=== PATIENT | female | born 1935 | race Caucasian/White ===

== ENCOUNTER 2018-07-05 13:20 | Inpatient (IN) | payer BC, OTHER ==
[~2018-07-05] VITALS: Ht 147.3 cm; Wt 60.8 kg
--- NOTE | 2018-07-05 13:41 | ERD ---
ER Documentation Chief Complaint Chief Complaint left lip numbness HPI The patient is a 82-year-old female, presenting to the ER because of sudden onset of left lip numbness around 12 PM while she was talking on the phone, with left hand numbness and dizziness.. She denies similar symptoms previously. These symptoms lasted for a few seconds but the scared her to go to the hospital. She denies headache, neck pain, chest pain, dyspnea, abdominal pain, vomiting, dizzy, diarrhea. She does not smoke nor drink Past medical history: Hypertension, DM Past surgical history: None ROS All systems reviewed and are negative except as per history of present illness. Medications Home Meds Reported Medications Metformin Hcl* (Metformin Hcl* ER) 500 Mg Tab.sr.24h, 500 MG PO DAILY, #30 TAB 07/05/18 Allergies Allergies: Coded Allergies: No Known Allergy (Unverified , 07/05/18) Physical Exam Vitals Vital Signs Date Temp Pulse Resp B/P (MAP) Pulse Ox O2 O2 Flow FiO2 Time Delivery Rate 07/05/18 77 16 157/91 97 Room Air 16.0 18:30 (113) 07/05/18 80 18 176/72 17:16 (106) 07/05/18 140/80 13:42 (100) 07/05/18 97.8 87 19 164/145 99 13:39 (151) Physical Exam Const: No acute distress. Head: Atraumatic. Eyes: Normal Conjunctiva. ENT: Normal External Ears, Nose and Mouth. Neck: Full range of motion. No meningismus. Resp: Clear to auscultation bilaterally. Cardio: Regular rate and rhythm. Abd: Soft, non distended, normal bowel sounds, non tender. Skin: No petechiae or rashes. Back: No midline or flank tenderness. Ext: No cyanosis, or edema. Neur: Awake and alert. No focal deficit Psych: Normal Mood and Affect. Result Diagram: 07/05/18 1420 07/05/18 1420 Results 24 hrs Laboratory Tests Test 07/05/18 14:20 07/05/18 18:30 White Blood Count 4.9 10^3/ul Red Blood Count 3.89 10^6/ul Hemoglobin 11.6 g/dl Hematocrit 35.4 % Mean Corpuscular Volume 91.0 fl Mean Corpuscular Hemoglobin 29.8 pg Mean Corpuscular Hemoglobin Concent 32.8 g/dl Red Cell Distribution Width 12.7 % Platelet Count 218 10^3/UL Mean Platelet Volume 9.6 fl Immature Granulocytes % 0.400 % Neutrophils % 62.0 % Lymphocytes % 20.2 % Monocytes % 11.9 % Eosinophils % 4.7 % Basophils % 0.8 % Nucleated Red Blood Cells % 0.0 /100WBC Immature Granulocytes # 0.020 10^3/ul Neutrophils # 3.0 10^3/ul Lymphocytes # 1.0 10^3/ul Monocytes # 0.6 10^3/ul Eosinophils # 0.2 10^3/ul Basophils # 0.0 10^3/ul Nucleated Red Blood Cells # 0.0 10^3/ul Prothrombin Time 12.1 Sec Prothrombin Time Ratio 0.9 INR International Normalized Ratio 0.89 Activated Partial Thromboplast Time 26.9 Sec Sodium Level 144 mmol/L Potassium Level 4.3 mmol/L Chloride Level 105 mmol/L Carbon Dioxide Level 28 mmol/L Anion Gap 11 Blood Urea Nitrogen 21 mg/dl Creatinine 1.04 mg/dl Est Glomerular Filtrat Rate mL/min mL/min Glucose Level 103 mg/dl Calcium Level 9.5 mg/dl Troponin I 0.240 ng/ml 0.215 ng/ml Creatine Kinase 53 IU/L Creatine Kinase Index 1.3 Creatinine Kinase MB (Mass) 0.69 ng/ml Current Medications Medications Dose Sig/Elsie Start Time Status Last (Trade) Ordered Route PRN Stop Time Admin Dose Reason Admin IV Flush 10 ml STK-MED 07/05/18 DC 07/05/18 (NS 10 ml) ONCE .ROUTE 15:49 07/05/18 15:49 15:50 Sodium 100 ml @ ud STK-MED 07/05/18 DC 07/05/18 Chloride ONCE .ROUTE 15:49 07/05/18 15:49 15:50 Iodixanol 100 ml STK-MED 07/05/18 DC 07/05/18 (Visipaque ONCE .ROUTE 15:49 07/05/18 15:49 Locm) 15:50 Aspirin 325 mg ONCE ONCE 07/05/18 DC 07/05/18 (Aspirin) PO 18:00 07/05/18 18:21 18:10 1 inch ONCE ONCE 07/05/18 DC 07/05/18 Nitroglycerin TD 18:00 07/05/18 18:21 18:10 (Nitroglyceri n 2% Oint) IV Flush 3 ml PER 07/05/18 (NS 3 ml) PROTOCOL IV 18:30 Enoxaparin 30 mg DAILY SC 07/06/18 Sodium 09:00 (Lovenox) Aspirin 81 mg DAILY PO 07/06/18 (Aspirin) 09:00 40 mg HS PO 07/05/18 Atorvastatin 21:00 Calcium (Lipitor) Procedures/[place] [address] Radiology Main Line: [phone] DIAGNOSTIC IMAGING REPORT Patient: SAURAV PIZANO : 1935 Age: 82 Sex: F MR #: [id number] DOS: 07/05/18 1541 Ordering MD: DHRUV DAVIES MD Location: E/R Room/Bed: PROCEDURE: CTA Chest and pulmonary angiogram. CLINICAL INDICATION: Chest pain and shortness of breath. TECHNIQUE: CT scan of the chest and CT pulmonary angiogram was performed on a multidetector high-resolution CT scanner. High-resolution thin slice coronal and sagittal imaging was obtained from the axial source images. 3-D volumetric rendered post processing was performed as well. The patient was examined following the uncomplicated intravenous administration of 100 cc of Omnipaque- 350. The images were reviewed on a PACS workstation. The total exam CTDI equals 25.35, and 9.38 and the total exam DLP equals 313.7 mGy-cm. DICOM images are available. DICOM images are available. One or more of the following dose reduction techniques were utilized: 1.) Automated exposure control 2.) Adjustment of the mA +/- kV according to patient's size 3.) Use of iterative reconstruction technique. COMPARISON: No prior studies are available for comparison. FINDINGS: CT chest: There is a calcified granuloma in the right middle lobe. No focal opacification, effusion, pneumothorax, edema, or nodules are seen. The central tracheobronchial tree is clear. The mediastinum is unremarkable without evidence for mass or lymphadenopathy. Calcified right intrapulmonary, right hilar , paratracheal and subcarinal lymph nodes are present. The vascular structures of the mediastinum are normal in course and caliber. The heart size is normal without pericardial thickening or effusion. The axillary, subpectoral, and supraclavicular regions are unremarkable. Imaging obtained through the upper abdomen is remarkable for calcified granuloma in the spleen. The adrenal glands are symmetrically normal. The surrounding ch est wall is unremarkable. The osseous structures are remarkable for degenerative spondylosis of the spine. CT pulmonary angiogram: No thrombus, clot, filling defect, or pulmonary web is identified. The pulmonary arteries are normal in caliber and morphology. No filling defect is present to suggest pulmonary embolism. There is no evidence for pulmonary arterial hypertension. IMPRESSION: 1. No evidence for pulmonary embolism. 2. No mass, lymphadenopathy or acute infiltrates. 3. Sequela of prior granulomatous disease. 4. Aortic and coronary artery vascular calcifications. RPTAT: BB .Shashank Sheppard MD, Date Time Electronically viewed and signed by .Shashank Sheppard MD, MD on 07/05/2018 17:30 .O/ CC: DHRUV DAVIES MD [phone] [place] [address] Radiology Main Line: [phone] DIAGNOSTIC IMAGING REPORT Patient: SAURAV PIZANO : 1935 Age: 82 Sex: F MR #: [id number] DOS: 07/05/18 1403 Ordering MD: DHRUV DAVIES MD Location: E/R Room/Bed: PROCEDURE: CT Brain without contrast. CLINICAL INDICATION: Syncope. TECHNIQUE: A CT of the brain without contrast was performed utilizing axial sections from the skull base through the vertex. One or more the following does reduction techniques were utilized: Automated exposure control, adjustment of the mA/ or kV according to patient's size, or use of iterative reconstruction technique. Total exam CTDIvol is 39.54 MGy and DLP is 634.23 mGy-cm. DICOM images are available. COMPARISON: None available. FINDINGS: The ventricles and sulci are mildly prominent indicative of volume loss. There is no intracranial hemorrhage, mass effect or midline shift. No abnormal intra- axial or extra-axial fluid collections are seen. The wing/white matter differentiation is preserved. 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 There are mild to moderate foci of hypoattenuation in the white matter, which are nonspecific in etiology but likely reflect chronic small vessel ischemic changes. There are mild intracranial vascular calcifications consistent with atherosclerosis. The visualized paranasal sinuses demonstrate mild scattered mucosal thickening. The mastoid air cells are essentially clear. IMPRESSION: 1. No acute intracranial hemorrhage, transcortical infarction or mass effect. 2. Mild intracranial atherosclerosis and mild to moderate chronic small vessel ischemic changes. 3. 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 4. Mild generalized cerebral volume loss. RPTAT: HH .Yadira Ramirez MD, MD Date Time Electronically viewed and signed by .Yadira Ramirez MD, on 07/05/2018 15:00 .N/ CC: DHRUV DAVIES MD [id number] [place] [address] Radiology Main Line: [phone] DIAGNOSTIC IMAGING REPORT Patient: SAURAV PIZANO : 1935 Age: 82 Sex: F MR #: [id number] DOS: 07/05/18 1403 Ordering MD: DHRUV DAVIES MD Location: E/R Room/Bed: PROCEDURE: XR Chest. CLINICAL INDICATION: Altered mental status TECHNIQUE: Single frontal view of the chest was obtained COMPARISON: None FINDINGS: Atherosclerotic changes are seen in the aortic arch. The cardiac silhouette is unremarkable. The lungs are clear. There is no pleural effusion or pneumothorax. The bones and soft tissue show no acute change. IMPRESSION: No acute abnormalities are identified on this single view. RPTAT:AAJJ Physician Derek Date Time Electronically viewed and signed by Grabiel Pierre Physician on 07/05/2018 14:36 MC/ CC: DHRUV DAVIES MD [id number] EKG: At 2:24 PM read by emergency physician Rate/Rhythm: Normal Sinus Rhythm 80 beats/min QRS, ST, T-waves: No ST elevation, no T inversion Impression: normal EKG EKG: At 3:48 PM read by emergency physician Rate/Rhythm: Normal Sinus Rhythm 81 beats/min QRS, ST, T-waves: No ST elevation, no T inversion Impression: normal EKG MEDICAL MAKING DECISION: The patient is a 82-year-old female, presenting with acute TIA, acute troponin elevation of unclear etiology. He was treated with aspirin 325 mg p.o. and 1 inch of nitroglycerin for her TIA and for her elevated blood pressure and suspected non-STEMI The differential diagnoses considered include but are not limited to TIA, impending CVA, non-STEMI, ACS, PE, aortic disease Departure Diagnosis: Primary Impression: TIA (transient ischemic attack) Additional Impressions: Elevated troponin Anemia Condition: Stable Comments I discussed the findings with the patient. I discussed the patient with the hospitalist Dr Nunez at 5:40 PM. who was made aware of the lab, the treatment, the patient condition. The patient is admitted to [facility] Disclaimer: Inadvertent spelling and grammatical errors are likely due to EHR/dictation software use and do not reflect on the overall quality of patient care. Also, please note that the electronic time recorded on this note does not necessarily reflect the actual time of the patient encounter. DHRUV DAVIES MD Jul 05, 2018 13:41
[2018-07-05] MEDS ORDERED: METF500T3 PO (14:28)
[2018-07-05] MEDS ORDERED: IODIXANOL LOCM 100 ML BTL ONE (15:49)
[2018-07-05] MEDS ORDERED: SOD CHLORIDE 0.9% 100 ML ONE (15:49)
[2018-07-05] MEDS ORDERED: ASPIRIN 325 MG TAB PO ONE (18:00)
[2018-07-05] MEDS ORDERED: NITROGLYCERIN 2% 1 GM OINT PKT TD ONE (18:00)
--- NOTE | 2018-07-05 18:13 | HP ---
Date/Time of Note Date/Time of Note DATE: 07/05/18 TIME: 18:07 Assessment/Plan VTE Prophylaxis Pharmacological prophylaxis: heparin Lines/Catheters IV Catheter Type (from Nrsg): Saline Lock Assessment/Plan Hospital Course 82 yo female with h/o DMII, hypertension who presents with episode of transient R facial numbness, dysarthria, and hand weakness which have now all resolved Most concerning for TIA - Will complete workup with CT angio of head/neck, MRI, telemetry, TTE - Aspirin, statin - Dr Barrios consulted NSTEMI: - Likely related to TIA as she had no chest symptosm and EKG without acute ischemia - Trend troponin - Aspirin DMII: - Basal/bolus Discharge pending clinical course Result Diagram: 07/05/18 1420 07/05/18 1420 Results 24hrs Laboratory Tests Test 07/05/18 14:20 White Blood Count 4.9 Red Blood Count 3.89 L Hemoglobin 11.6 L Hematocrit 35.4 L Mean Corpuscular Volume 91.0 Mean Corpuscular Hemoglobin 29.8 Mean Corpuscular Hemoglobin Concent 32.8 Red Cell Distribution Width 12.7 Platelet Count 218 Mean Platelet Volume 9.6 Immature Granulocytes % 0.400 Neutrophils % 62.0 Lymphocytes % 20.2 Monocytes % 11.9 H Eosinophils % 4.7 Basophils % 0.8 Nucleated Red Blood Cells % 0.0 Immature Granulocytes # 0.020 Neutrophils # 3.0 Lymphocytes # 1.0 Monocytes # 0.6 Eosinophils # 0.2 Basophils # 0.0 Nucleated Red Blood Cells # 0.0 Prothrombin Time 12.1 Prothrombin Time Ratio 0.9 INR International Normalized Ratio 0.89 Activated Partial Thromboplast Time 26.9 Sodium Level 144 Potassium Level 4.3 Chloride Level 105 Carbon Dioxide Level 28 Anion Gap 11 Blood Urea Nitrogen 21 H Creatinine 1.04 H Est Glomerular Filtrat Rate mL/min Glucose Level 103 Calcium Level 9.5 Troponin I 0.240 *H HPI/ROS Admit Date/Time Admit Date/Time Hx of Present Illness 82 yo female with DMII who presents with transient facial numbness and LUE weakness Patient in [facility] until today. Was working in her kitchen when she felt her R side of face go numb. Then couldn't speak. L handle also weak and numb. Symptoms resolved. Currently feels totally fine. No symptoms at all. Troponin elevated but denies any chest symptoms at all PMH/Family/Social Past Medical History Medical History: diabetes, hypertension Medications Current Medications Aspirin (Aspirin) 325 mg ONCE ONCE PO ; Start 07/05/18 at 18:00; Stop 07/05/18 at 18:01; Status UNV Nitroglycerin (Nitroglycerin 2% Oint) 1 inch ONCE ONCE TD ; Start 07/05/18 at 18:00; Stop 07/05/18 at 18:01; Status UNV Coded Allergies: No Known Allergy (Unverified , 07/05/18) Past Surgical History Past Surgical Hx: no surgical history Family History Significant Family History: no pertinent family hx Social History Alcohol Use: none Smoking Status: Never smoker Drug Use: none Exam/Review of Systems Vital Signs Vitals Vital Signs Date Temp Pulse Resp B/P (MAP) Pulse Ox O2 O2 Flow FiO2 Time Delivery Rate 07/05/18 80 18 176/72 17:16 (106) 07/05/18 97.8 99 13:39 Exam Constitutional: alert, oriented, well developed Psych: no complaints, nl mood/affect Head: normocephalic, atraumatic Eyes: nl conjunctiva, EOMI, nl lids, nl sclera, PERRL ENMT: nl external ears & nose, nl lips & teeth, nl nasal mucosa & septum Neck: supple, non-tender Respiratory: clear to auscultation, normal air movement Cardiovascular: regular rate and rhythm, nl pulses Gastrointestinal: soft, nl liver, spleen, non-tender Musculoskeletal: nl extremities to inspection Extremities: normal pulses Neurological: BRASS SORTER II-XII intact, nl mental status, nl speech, nl strength Skin: nl turgor; No rash or lesions Lymph: nl lymph nodes EVANGELINA QUAN MD Jul 05, 2018 18:13
[2018-07-05] MEDS ORDERED: NACL 0.9% 3 ML SYG IV SCH (18:30)
[2018-07-05] MEDS ORDERED: ATORVASTATIN 40 MG TAB PO SCH (21:00)
[2018-07-05 21:16] VITALS: BP 193/89; PULSE 90; RESP 16
[2018-07-05 21:28] VITALS: PULSE 84
[2018-07-05 21:39] VITALS: Ht 147.3 cm; Wt 60.8 kg
[2018-07-05 22:00] VITALS: BP 139/67
[2018-07-05] MEDS ORDERED: LISI2.5T59 PO (22:28)
[2018-07-05] MEDS ORDERED: GLUCAGON 1 MG INJ IM PRN (23:00)
[2018-07-05] MEDS ORDERED: DEXTROSE 50% 50 ML SYRINGE IV PRN ×2 (23:00)
[2018-07-05] MEDS ORDERED: GLUCOSE GEL 15 GRAM TUBE BUCCAL PRN (23:00)
[2018-07-05] MEDS ORDERED: GLUCOSE GEL 15 GRAM TUBE PO PRN ×2 (23:00)
[2018-07-06] VITALS (7 sets, daily range): BP systolic 142–168; BP diastolic 65–79; PULSE 73–94; RESP 16–17
[2018-07-06] MEDS ORDERED: ACCU-CHEK XX SCH (02:00)
[2018-07-06] MEDS: INSULIN ASPART [NOVOLOG] 3 ML PEN SC SCH ×2 (07:54→11:57)
[2018-07-06] MEDS ORDERED: NITROGLYCERIN 2% 1 GM OINT PKT TD SCH (09:00)
[2018-07-06] MEDS ORDERED: ENOXAPARIN 30 MG/0.3 ML SYG SC SCH (09:00)
[2018-07-06] MEDS ORDERED: ASPIRIN 81 MG TAB PO SCH (09:00)
[2018-07-06] MEDS ORDERED: LISINOPRIL 5 MG TAB PO SCH (09:00)
[2018-07-06] MEDS ORDERED: IODIXANOL LOCM 100 ML BTL ONE (09:10)
[2018-07-06] MEDS ORDERED: SOD CHLORIDE 0.9% 100 ML ONE (09:10)
[2018-07-06] MEDS ORDERED: ASPI-831 PO (11:54)
[2018-07-06] MEDS ORDERED: ATOR40TA68 PO (11:54)
--- NOTE | 2018-07-06 11:55 | PDOCDIS ---
Discharge Instructions DIAGNOSIS Discharge Diagnosis TIA CONDITION [id number] Patient Condition: [id number] Stable FOLLOW UP/APPOINTMENTS Follow-up Plan Take a baby aspirin everyday as well as lipitor It is very important to make sure your blood pressure is well controlled. Please check in with your doctor about this in the coming 1-2 week Return to the hospital [facility] if you have any symptoms concerning for stroke or heart attack EVANGELINA QUAN MD Jul 06, 2018 11:55
--- NOTE | 2018-07-06 13:47 | CONS ---
Assessment/Plan Assessment/Plan Hospital Course A: 82 F c/ multiple cerebrovascular risk factors, who presents for evaluation of transient sensory loss and difficulty speaking.. Clinically consistent w/ TIA.. Seizure is unlikely. MRI brain is without obvious acute intracranial pathology.. CTA H/N is notable for mild M1 stenosis b/l Echo report is pending.. P: await echo read Agree w/ asa/lipitor daily for secondary stroke prevention BP, glucose control and other medical management per primary PT/OT/ST not indicated.. Will follow Result Diagram: 07/06/1862707/06/18627 Results 24hrs Laboratory Tests Test 07/05/18 14:20 07/05/18 18:30 07/06/18 00:06 07/06/18 06:28 White Blood Count 4.9 5.5 Red Blood Count 3.89 L 3.44 L Hemoglobin 11.6 L 10.2 L Hematocrit 35.4 L 31.4 L Mean Corpuscular Volume 91.0 91.3 Mean Corpuscular 29.8 29.7 Hemoglobin Mean Corpuscular 32.8 32.5 Hemoglobin Concent Red Cell Distribution 12.7 12.8 Width Platelet Count 218 224 Mean Platelet Volume 9.6 10.4 Immature Granulocytes % 0.400 0.500 H Neutrophils % 62.0 63.5 Lymphocytes % 20.2 20.1 Monocytes % 11.9 H 9.6 Eosinophils % 4.7 5.8 Basophils % 0.8 0.5 Nucleated Red Blood 0.0 0.0 Cells % Immature Granulocytes # 0.020 0.030 Neutrophils # 3.0 3.5 Lymphocytes # 1.0 1.1 Monocytes # 0.6 0.5 Eosinophils # 0.2 0.3 Basophils # 0.0 0.0 Nucleated Red Blood 0.0 0.0 Cells # Prothrombin Time 12.1 Prothrombin Time Ratio 0.9 INR International 0.89 Normalized Ratio Activated 26.9 Partial Thromboplast Time Sodium Level 144 140 Potassium Level 4.3 4.6 Chloride Level 105 106 Carbon Dioxide Level 28 29 Anion Gap 11 5 Blood Urea Nitrogen 21 H 26 H Creatinine 1.04 H 1.06 H Est Glomerular Filtrat Rate mL/min Glucose Level 103 125 Calcium Level 9.5 9.4 Troponin I 0.240 *H 0.215 *H 0.205 *H Creatine Kinase 53 55 Creatine Kinase Index 1.3 1.4 Creatinine Kinase MB 0.69 0.75 (Mass) Hemoglobin A1c 6.5 H Total Bilirubin 0.1 L Direct Bilirubin 0.00 Indirect Bilirubin 0.1 Aspartate Amino 25 Transf (AST/SGOT) Alanine 20 Aminotransferase (ALT/SG PT) Alkaline Phosphatase 98 Total Protein 6.8 Albumin 4.0 Globulin 2.80 Albumin/Globulin Ratio 1.42 Test 07/06/18 07:50 07/06/18 11:48 Bedside Glucose 138 180 Consultation Date/Type/Reason Admit Date/Time Type of Consult Neurology Reason for Consultation TIA Requesting Provider: EVANGELINA QUAN MD Date/Time of Note DATE: 07/06/18 TIME: 13:43 Hx of Present Illness 82 yo female with DMII who presents with transient facial numbness and LUE weakness Patient was in [facility] until the day of presentation. Was working in her kitchen when she felt her R side of face go numb. Then couldn't speak. L handle also weak and numb. Symptoms resolved. Currently feels totally fine. No symptoms at all. Troponin elevated but denies any chest symptoms at all 12 PT ROS ow neg Exam/Review of Systems Vital Signs Vitals Vital Signs Date Temp Pulse Resp B/P (MAP) Pulse Ox O2 O2 Flow FiO2 Time Delivery Rate 07/06/18 98.6 94 17 161/67 96 11:23 (98) 07/06/18 Room Air 00:03 07/05/18 18:30 Intake and Output 07/05/18 07/05/18 07/06/18 1515:00 23:00 07:00 IntakeIntake Total 100 ml 500 ml BalanceBalance 100 ml 500 ml Exam PE: Gen Appearance: No Apparent Distress HEENT: Normocephalic Cardiovascular: Regular rate Lungs: Clear bilaterally Abdomen: Soft Extremities: Dry NE: The patient was alert and oriented, able to spell WORLD backwards, and able to recall all three words after a five minute delay. Language was normal. Fund of knowledge was normal. Pupils were equal and reactive to light. There was no afferent pupillary defect. Visual rubio were normal. Funduscopic examination was limited. Extra-ocular movements were full. Ptosis was absent. There was no nystagmus. Facial sensation was normal. Face was symmetric with normal strength. Hearing was intact. Palate movements were normal. Neck strength was normal. There was normal tongue bulk and speed of movement. Tone was normal. Muscle bulk was normal. I did not see fasciculations. Arms and legs were strong. Vibration sensation was normal. Temperature and pinprick sensation was normal. Rapid alternating movements were normal. There was no dysmetria. There was no intention tremor. Gait was deferred due to bedrest. Arm and leg reflexes were 2+ and symmetric. Owens's sign was absent. Plantar responses were flexor. Past Medical History Medical History: diabetes, hypertension Allergies: Coded Allergies: No Known Allergy (Unverified , 07/05/18) Past Surgical History Past Surgical Hx: no surgical history Social History Alcohol Use: none Smoking Status: Never smoker Drug Use: none DUONG RICHARDS Jul 06, 2018 13:47
--- NOTE | 2018-07-06 14:34 | DS ---
Date/Time of Note Date/Time of Note DATE: 07/06/18 TIME: 14:33 Discharge Summary Admission/Discharge Info Admit Date/Time Jul 05, 2018 at 17:40 Discharge Date/Time Jul 06, 2018 at 13:00 Discharge Diagnosis TIA Patient Condition: Stable Hx of Present Illness 82 yo female with DMII who presents with transient facial numbness and LUE weakness Patient in [facility] until today. Was working in her kitchen when she felt her R side of face go numb. Then couldn't speak. L handle also weak and numb. Symptoms resolved. Currently feels totally fine. No symptoms at all. Troponin elevated but denies any chest symptoms at all Hospital Course 82 yo female with h/o DMII, hypertension who presents with episode of transient R facial numbness, dysarthria, and hand weakness which have now all resolved Most concerning for TIA. She underwent CT head showing no acute pathology. CT-A of head and neck showed no acute pathology but did show athersclerosis. MRI showed old lacunar infarcts. She was started on aspirin and lipitor. TTE is pending. Troponin was elevated by likely a type II HI. She very much wanted to be discharged this morning and is aware that her cardiac workup is not complete. Home Meds Active Scripts Atorvastatin* (Atorvastatin*) 40 Mg Tablet, 40 MG PO HS for 90 Days, #90 TAB 4 Refills Prov:EVANGELINA QUAN MD 07/06/18 Aspirin (Aspirin) 81 Mg Chew, 81 MG PO DAILY for 90 Days, #90 TAB.CHEW 5 Refills Prov:EVANGELINA QUAN MD 07/06/18 Reported Medications Lisinopril* (Lisinopril*) 2.5 Mg Tablet, 2.5 MG PO DAILY, #30 TAB 07/05/18 Metformin Hcl* (Metformin Hcl* ER) 500 Mg Tab.sr.24h, 500 MG PO DAILY, #30 TAB 07/05/18 Follow-up Plan Take a baby aspirin everyday as well as lipitor It is very important to make sure your blood pressure is well controlled. Please check in with your doctor about this in the coming 1-2 week Return to the hospital [facility] if you have any symptoms concerning for stroke or heart attack Primary Care Provider Not On Staff Doctor Pending Labs Laboratory Tests Test 07/05/18 18:30 07/06/18 00:06 07/06/18 06:28 07/06/18 07:50 Creatine 53 55 Kinase IU/L (23-200) IU/L (23-200) Creatine Kinase 1.3 1.4 Index Creatinine 0.69 0.75 Kinase MB ng/ml (0.0-2.4) ng/ml (0.0-2.4 (Mass) ) Troponin I 0.215 0.205 ng/ml (0.000-0. ng/ml (0.000-0 120) .120) White Blood 5.5 Count 10^3/ul (4.8-1 0.8) Red Blood 3.44 Count 10^6/ul (4.20- 5.40) Hemoglobin 10.2 g/dl (12.0-16. 0) Hematocrit 31.4 % (37.0-47.0) Mean 91.3 Corpuscular fl (82.0-101.0 Volume ) Mean 29.7 Corpuscular pg (29.0-33.0) Hemoglobin Mean 32.5 Corpuscular g/dl (32.0-37. Hemoglobin Conc 0) ent Red Cell 12.8 Distribution % (11.5-14.5) Width Platelet Count 224 10^3/UL (140-4 15) Mean Platelet 10.4 Volume fl (7.4-10.4) Immature 0.500 Granulocytes % % (0.001-0.429 ) Neutrophils % 63.5 % (39.0-77.0) Lymphocytes % 20.1 % (15.0-51.0) Monocytes % 9.6 % (0.0-11.0) Eosinophils % 5.8 % (0.0-7.0) Basophils % 0.5 % (0.0-2.0) Nucleated Red 0.0 Blood Cells % /100WBC (0.0-0 .0) Immature 0.030 Granulocytes # 10^3/ul (0.0-0 .031) Neutrophils # 3.5 10^3/ul (1.6-7 .5) Lymphocytes # 1.1 10^3/ul (0.8-2 .9) Monocytes # 0.5 10^3/ul (0.3-0 .9) Eosinophils # 0.3 10^3/ul (0.0-0 .5) Basophils # 0.0 10^3/ul (0.0-0 .1) Nucleated Red 0.0 Blood Cells # 10^3/ul (0.0-0 .0) Sodium Level 140 mmol/L (135-14 4) Potassium 4.6 Level mmol/L (3.5-5. 1) Chloride Level 106 mmol/L (97-110 ) Carbon Dioxide 29 Level mmol/L (21-31) Anion Gap 5 (5-13) Blood Urea 26 Nitrogen mg/dl (7-20) Creatinine 1.06 mg/dl (0.44-1. 00) Est Glomerular mL/min (>60) Filtrat Rate mL/min Glucose Level 125 mg/dl (70-220) Hemoglobin A1c 6.5 % (0-5.9) Calcium Level 9.4 mg/dl (8.4-10. 2) Total 0.1 Bilirubin mg/dl (0.2-1.3 ) Direct 0.00 Bilirubin mg/dl (0.00-0. 20) Indirect 0.1 Bilirubin mg/dl (0-1.1) Aspartate Amino 25 Transf (AST/SGO IU/L (15-46) T) Alanine 20 Aminotransferas IU/L (13-69) e (ALT/SGPT) Alkaline 98 Phosphatase IU/L (42-121) Total Protein 6.8 g/dl (6.1-8.1) Albumin 4.0 g/dl (3.3-4.9) Globulin 2.80 g/dl (1.3-3.2) Albumin/Globuli 1.42 n Ratio Bedside 138 Glucose mg/dL (70-220) Test 07/06/18 11:48 Bedside 180 Glucose mg/dL (70-220) EVANGELINA QUAN MD Jul 06, 2018 14:34
--- NOTE | 2018-07-06 17:41 | RADRPT ---
Echocardiogram Report Patient Name: SAURAV PIZANO Gender: Female Date: 1935 Study Date: 06-Jul-2018 Business Law Instructor: Hailey Deutsch [facility] Location: [id number] Ref. Physician: EVANGELINA QUAN Quality: Adequate Procedures: Transthoracic echocardiogram with complete 2D, M-Mode, and doppler examination. Indications: troponin. 2D/M Mode Doppler Measurement Value Normal Ranges Measurement Value Normal Ranges LVIDd 2D 3.2 3.5 - 5.6 cm AV Peak Syed 1.5 m/sec LVIDs 2D 2.1 2.1 - 4.1 cm AV Peak PG 9.0 mmHg FS 2D 33.1 % AI Peak PG 75.0 mmHg LVPWd 2D 1.1 0.6 - 1.1 cm AI Peak Syed 4.3 m/sec IVSd 2D 1.1 0.6 - 1.1 cm AI PHT 415.0 msec IVS/LVPW 2D 1.0 LVOT Peak Syed 1.0 m/sec AoR Diam 2D 2.7 2.0 - 3.7 cm LVOT Peak PG 4.0 mmHg LA/Ao 2D 1 0 - 1 MV E Peak Syed 0.8 m/sec EDV 2D 31.9 cm3 MV A Peak Syed 1.3 m/sec ESV 2D 9.5 cm3 MV E/A 0.6 LA Dimen 2D 2.8 2.3 - 4.0 cm MV Decel Time 218 msec MV E/A 0.6 TR Peak Syed 2.5 m/sec TR Peak PG 25.0 mmHg RVSP 28.0 mmHg RA Pressure 3.0 Findings Left Ventricle: Normal left ventricular systolic function. Normal left ventricular cavity size. Mild concentric left ventricular hypertrophy. Ejection fraction is visually estimated at 5560 %. Tissue Doppler/Mitral Doppler indices are consistent with impaired relaxation (Stage I diastolic dysfunction). Right Ventricle: Normal right ventricular size. Normal right ventricular systolic function. Left Atrium: The left atrium is normal in size. Right Atrium: The right atrium is normal in size. Mitral Valve: Normal appearance and function of the mitral valve with trace physiologic regurgitation. Aortic Valve: No hemodynamically significant aortic stenosis by doppler. Aortic cusps appear mildly calcified. Mild to moderate aortic valve regurgitation. Tricuspid Valve: Normal appearance of the tricuspid valve. Estimated peak PA systolic pressure 28 mmHg. There is trace tricuspid regurgitation. Pulmonic Valve: Normal pulmonic valve appearance. Pericardium: Normal pericardium with no significant pericardial effusion. Aorta: Normal aortic root. IVC: Normal size and normal respiratory collapse consistent with normal right atrial pressure. Conclusions Normal left ventricular systolic function. Normal left ventricular cavity size. Mild concentric left ventricular hypertrophy. Ejection fraction is visually estimated at 55-60 %. Tissue Doppler/Mitral Doppler indices are consistent with impaired relaxation (Stage I diastolic dysfunction). Normal appearance and function of the mitral valve with trace physiologic regurgitation. No hemodynamically significant aortic stenosis by doppler. Aortic cusps appear mildly calcified. Mild to moderate aortic valve regurgitation. Normal appearance of the tricuspid valve. Estimated peak PA systolic pressure 28 mmHg. There is trace tricuspid regurgitation. No significant valvular stenosis or regurgitation seen of remaining visualized valves. Electronically Signed By: Lit Trujillo 06-Jul-2018 17:40:55 -0800 Patient Name: SAURAV PIZANO Study Date: 06-Jul-2018 [id number]
== END 2018-07-06 13:00 | disposition home or self-care (01) | DRG 69 ==
LOC: E/R 13:20 → TEL 17:40 → EDBEDREQ 18:16
PROVIDERS: ADMIT Internal Medicine; ATTEND Internal Medicine
DX: G45.9 Transient cerebral ischemic attack, unspecified (principal); E11.9 Type 2 diabetes mellitus without complications; I10 Essential (primary) hypertension; R07.9 Chest pain, unspecified; R06.02 Shortness of breath; D64.9 Anemia, unspecified
CPT/HCPCS: 36415; 70450; 70496; 70498; 70551; 71045; 71275; 80048; 80053; 82550; 82553; 82962; 83036; 84484; 85025; 85610; 85730; 93005; 93306; J1650; J1815; Q9967